=== PATIENT | male | born 1945 | race African-American/Black ===

== ENCOUNTER 2021-05-04 18:53 | Observation (INO) ==
[2021-05-04] MEDS ORDERED: 0.9 % Sodium Chloride 500 ML IVC ONE (19:14)
[2021-05-04 19:39] LABS: Bilirubin,Urine Negative (Negative); Blood,Urine Negative (Negative); Clarity,Urine Clear (Clear); Color,Urine Colorless (Yellow); Glucose,Urine (UA) Normal (Normal); Ketones,Urine Negative (Negative); Leukocyte Esterase,Urine Negative (Negative); Nitrite,Urine Negative (Negative); Protein,Urine Negative (Neg-Trace); Urobilinogen,Urine Normal (Normal)
[2021-05-04 19:41] LABS: Basophils % 0.3 %; Eosinophils # 0.1 K/mcL (0.0-0.6); Eosinophils % 1.4 %; Hematocrit 45.6 % (37.5-50.1); Hemoglobin 15.5 g/dL (12.9-16.9); Immature Granulocytes % 0.2 % (0-4); Lymphocytes # 1.9 K/mcL (0.6-4.6); Lymphocytes % 29.3 %; Mean Corpuscular Hemoglobin 31.6 pg (28.0-33.3); Mean Corpuscular Volume 92.9 fL (83.0-100.0); Mean Platelet Volume 9.6 fL (9.4-12.4); Monocytes # 0.6 K/mcL (0.0-1.3); Monocytes % 8.8 %; Platelet Count 241 K/mcL (140-400); Red Blood Count 4.91 M/mcL (4.19-5.50); Red Cell Distribution Width 12.9 % (11.5-14.5); White Blood Count 6.6 K/mcL (4.3-11.1)
[2021-05-04 20:03] LABS: Alanine Aminotransferase 87 Units/L (7-52); Albumin 4.4 g/dL (3.5-5.7); Albumin/Globulin Ratio 1.4 (1.1-2.2); Alkaline Phosphatase 92 Units/L (34-104); Aspartate Amino Transferase 59 Units/L (13-39); BUN/Creatinine Ratio 15 (6-26); Bilirubin,Total 0.5 mg/dL (0.3-1.0); Blood Urea Nitrogen 12 mg/dL (8-23); Calcium 9.5 mg/dL (8.6-10.3); Carbon Dioxide 26 mEq/L (23-29); Chloride 101 mEq/L (98-107); Globulin 3.2 g/dL (2.4-3.5); Glucose 96 mg/dL (70-105); Osmolality,Calculated 282 (280-300); Sodium 136 mEq/L (136-145); Total Protein 7.6 g/dL (6.4-8.9); Troponin I < 0.03 ng/mL (< 0.04); eGFR For African Americans > 60 (> 60); eGFR For Non-African Americans > 60 (> 60)
[2021-05-04] MEDS ORDERED: Isovue-370 500 ML BOTTLE IVP ONE (22:22)
[2021-05-04 23:15] LABS: Influenza A PCR Negative (Negative); Influenza B PCR Negative (Negative); Resp. Syncytial Virus PCR Negative (Negative); SARS-CoV-2 by PCR (In House) Negative (Negative)
[2021-05-05] MEDS ORDERED: Acetaminophen 325 MG TABLET PO PRN (00:59)
[2021-05-05] MEDS ORDERED: *HR* OxyCODONE Immed Rel 5 MG TABLET PO PRN (00:59)
[2021-05-05] MEDS ORDERED: Ondansetron ODT 4 MG TAB.RAPDIS SL PRN (00:59)
[2021-05-05] MEDS ORDERED: Melatonin 3 MG TABLET PO PRN (00:59)
[2021-05-05] MEDS ORDERED: Naloxone 0.4 MG/ML INJ IVP PRN (00:59)
[2021-05-05] MEDS ORDERED: *HR* HYDROcodone/Acet 5/325 mg TABLET PO PRN (00:59)
[2021-05-05] MEDS ORDERED: 0.9 % Sodium Chloride 1,000 ML IVC SCH (01:00)
[2021-05-05] MEDS ORDERED: *HR* Dextrose 50 % in Water (Syg) 50 ML SYRINGE IVP PRN (01:29)
[2021-05-05] MEDS ORDERED: Dextrose Gel 15 GM/37.5 ML TUBE PO PRN ×2 (01:29)
[2021-05-05] MEDS ORDERED: D5% in Water 1,000 ML IVC PRN (01:29)
[2021-05-05] MEDS ORDERED: Perflutren Lipid Microsphere 1.3 ML in 0.9 % Sodium Chloride 8.7 ML IVP PRN (01:31)
[2021-05-05 06:08] LABS: Hematocrit 44.1 % (37.5-50.1); Hemoglobin 14.6 g/dL (12.9-16.9); Mean Corpuscular HGB Conc 33.1 g/dL (31.6-35.5); Mean Corpuscular Hemoglobin 30.9 pg (28.0-33.3); Mean Corpuscular Volume 93.4 fL (83.0-100.0); Mean Platelet Volume 9.4 fL (9.4-12.4); Platelet Count 204 K/mcL (140-400); Red Blood Count 4.72 M/mcL (4.19-5.50); Red Cell Distribution Width 13.2 % (11.5-14.5); White Blood Count 6.6 K/mcL (4.3-11.1)
[2021-05-05 06:30] LABS: Alanine Aminotransferase 79 Units/L (7-52); Albumin 4.1 g/dL (3.5-5.7); Albumin/Globulin Ratio 1.4 (1.1-2.2); Alkaline Phosphatase 88 Units/L (34-104); Aspartate Amino Transferase 52 Units/L (13-39); BUN/Creatinine Ratio 13 (6-26); Bilirubin,Total 0.5 mg/dL (0.3-1.0); Blood Urea Nitrogen 11 mg/dL (8-23); Calcium 9.6 mg/dL (8.6-10.3); Carbon Dioxide 27 mEq/L (23-29); Chloride 103 mEq/L (98-107); Cholesterol 175 mg/dL (< 200); Glucose 142 mg/dL (70-105); HDL Cholesterol 35 mg/dL (40-59); LDL Cholesterol,Calculated 93 mg/dL (< 100); Osmolality,Calculated 286 (280-300); Phosphorous 2.4 mg/dL (2.7-4.5); Sodium 137 mEq/L (136-145); Total Protein 7.1 g/dL (6.4-8.9); Triglycerides 236 mg/dL (< 150); eGFR For African Americans > 60 (> 60); eGFR For Non-African Americans > 60 (> 60)
[2021-05-05] MEDS: Insulin LISPRO 300 UNITS/3 ML VIAL SUBQ SCH ×3 (07:25→16:46)
[2021-05-05] MEDS: 0.9 % Sodium Chloride 1,000 ML IVC SCH ×2 (10:07→20:56)
[2021-05-05 11:09] LABS: Estimated Average Glucose 140 mg/dl; Hemoglobin A1C 6.5 %
[2021-05-05] MEDS ORDERED: Insulin LISPRO 300 UNITS/3 ML VIAL SUBQ SCH (21:00)
[2021-05-06 06:55] VITALS: TEMP 97.8
[2021-05-06] MEDS: Insulin LISPRO 300 UNITS/3 ML VIAL SUBQ SCH ×2 (08:20→11:45)
[2021-05-06 11:11] VITALS: BP 144/80; PULSE 74; O2SAT 94
== END 2021-05-06 14:36 | disposition home or self-care (01) ==
LOC: EMEROOARM 18:53 → 2ANU 18:53 → SUATTDRO 05-05 00:57 → 2ANU 05-05 01:33
PROVIDERS: ADMIT Internal Medicine; ATTEND Internal Medicine